=== PATIENT | male | born 1970 | race Caucasian/White ===

== ENCOUNTER 2017-01-06 16:27 | Emergency (ER) | payer OTHER ==
[~2017-01-06] VITALS: Ht 182.9 cm; Wt 106.9 kg
[2017-01-06 16:33] VITALS: TEMP 36.7; Ht 182.9 cm; Wt 106.9 kg
[2017-01-06] MEDS ORDERED: IBUP-103 PO (16:52)
--- NOTE | 2017-01-06 17:45 | DIAGNOSTIC IMAGING REPORT ---
LUMBAR SPINE 5 VIEWS HISTORY: EVAL RIGHT BACK PAIN COMPARISON: None. FINDINGS: There is no fracture. No subluxation. Cholecystectomy. Posterior fusion defect at L5. Mild disc space at L5-S1. Mild to moderate facet degenerative changes at L4-5 and L5-S1. There are suggestion of bilateral L5 spondylolysis. IMPRESSION: 1. Mild degenerative disease at L5-S1. 2. Gwdr-ij-[id number] facet degenerative changes within the lower lumbar spine. 3. Possible bilateral L5 spondylolysis. Electronically signed by: Dominic Orozco M.D. 01/06/2017 5:43 PM Dictated Date/Time: 01/06/2017 5:42 PM
[2017-01-06] MEDS ORDERED: CYCL10TA6 PO (18:07)
[2017-01-06] MEDS ORDERED: IBUP-1451 PO (18:07)
[2017-01-06] MEDS ORDERED: HYDR-5688 PO (18:07)
--- NOTE | 2017-01-06 18:09 | EMERGENCY ROOM VISIT NOTE ---
ED Visit Note First contact with patient: 16:49 CHIEF COMPLAINT: Right low back pain 3-1/2 weeks HISTORY OF PRESENT ILLNESS: Patient is a 46-year-old white male who presents to the emergency department for worsening right low back pain. He initially injured himself on December 13. He was playing dodgeball for a work-related team building activity, and states he threw a dodgeball and felt a pop in his right low back. He was seen at [facility], and placed on a course of prednisone. He states that his symptoms did improve, and he essentially did return back to normal activity. Last night however, patient states that he was laying on his abdomen, and rolled onto his back, when he again felt a pop in the same area as the initial injury. He complains of pain that radiates from the right low back around the lateral aspect of the right hip into the right groin and down the medial thigh stopping at the knee. He has taken Advil intermittently, and has applied heat. He notes muscle spasms in his quad today. He denies any numbness, tingling or weakness into the right leg. No bowel or bladder incontinence or saddle anesthesias. He has no pain radiating into his penis or his testicle. He denies any prior history of back issues. He has been appointment with [facility] occupational health on Monday the , but concerned he could not get through the weekend due to his increased symptoms and thus presents to the emergency department. He presently rates his pain a 8/10. REVIEW OF SYSTEMS: Review of systems as per HPI. All other systems reviewed were negative. 10 systems reviewed. PMH: Electronic medical records are reviewed and summarized as above/below. See Problem List. SOCIAL HISTORY: Patient lives at home with his and children. Employed. He does not smoke.. PHYSICAL EXAM: Vital Signs: Reviewed Nurse's notes. CONSTITUTIONAL: Patient is a pleasant, well-appearing 46-year-old white male who is awake and alert and in mild distress. There is some discomfort with position changes. CARDIOVASCULAR: Regular rate and rhythm. Peripheral pulses easily palpable. RESPIRATORY: Breath sounds equal and clear to auscultation without wheezes, rales, or rhonchi heard. Full and equal chest expansion without accessory muscle use or retractions. ABDOMEN: Bowel sounds are present. Abdomen is soft, nontender and nondistended. INTEGUMENTARY: No lesions or rash, normal skin turgor. LYMPH: No lymphadenopathy. SPINE: Examination of the patient's back does not demonstrate any ecchymosis, abrasions or outward signs of trauma. No erythema, increased warmth or induration. Patient has no midline discomfort to palpation over the lumbar spine. He does have some pain palpable in the right SI region, and over the right posterior hemipelvis. There is no pain over sciatic notch. He has increased pain with range of motion including rotation and flexion. EXTREMITIES: Leg lengths are symmetrical. Negative logroll bilaterally. Normal strength including dorsi-flexion and plantar flexion of the great toes and ankles and flexion and extension of the knees and flexion of the hips. Negative bilateral straight leg raise testing. Lower extremity DTRs are equal and symmetrical bilaterally. Distal pulses are easily palpable. Sensation light touch is intact over the lower extremities bilaterally. EMERGENCY DEPARTMENT COURSE: X-rays of the lumbar spine were obtained. Patient was offered but declined IM Toradol. X-rays noted some mild degenerative changes through the lumbar spine. Treatment options were discussed with the patient. He is reluctant to use an additional course of redness on, and would like to use a nonsteroidal. He will be placed on ibuprofen 800 mg 3 times a day with food. He was also given prescriptions for Flexeril and Iuka to use as needed for breakthrough pain. He was advised to follow-up with occupational health as he has scheduled on Monday. The patient rated his pain a 5/10 at discharge. MEDICAL DECISION MAKING: I do not suspect acute compression syndrome, cauda equina, diskitis, epidural abscess, hematoma or neurovascular compromise. Differential diagnoses entertained included sacroiliitis, lumbar strain, disc herniation, among others. Medication reconciliation: I attest that I have personally reviewed the patient' s current medication list. Blood pressure screening: Patient was found to have a slightly elevated blood pressure due to circumstances. I do not believe that the patient requires hypertension monitoring. LUMBAR SPINE 5 VIEWS HISTORY: EVAL RIGHT BACK PAIN COMPARISON: None. FINDINGS: There is no fracture. No subluxation. Cholecystectomy. Posterior fusion defect at L5. Mild disc space at L5-S1. Mild to moderate facet degenerative changes at L4-5 and L5-S1. There are suggestion of bilateral L5 spondylolysis. IMPRESSION: 1. Mild degenerative disease at L5-S1. 2. Tpch-ok-kphghvem facet degenerative changes within the lower lumbar spine. 3. Possible bilateral L5 spondylolysis. Problem List Medical Problems: (1) Chest pain Status: Resolved (2) Hypertension Nos Status: Chronic Surgical Problems: (1) History of cholecystectomy Status: Resolved (2) History of reconstruction of anterior cruciate ligament tear Status: Resolved Current/Historical Medications Scheduled PRN Cyclobenzaprine Hcl (Flexeril), 10 MG PO TID PRN for Muscle Spasms Hydrocodone/Acetaminophen 5MG/325MG (Iuka 5MG/325MG), 1-2 TABLETS PO Q4 PRN for Pain Ibuprofen Tab (Advil), 400 MG PO Q6H PRN for Pain Ibuprofen Tab (Motrin), 800 MG PO TIDM PRN for Pain Allergies Coded Allergies: Penicillins (Verified Allergy, Intermediate, HIVES,, 11/13/10) Erythromycin (Verified Adverse Reaction, Intermediate, VOMITING, 12/07/10) Anesthetics, Amide (Verified Adverse Reaction, Unknown, SEVERE NAUSEA, ) Vital Signs Date Time Temp Pulse Resp B/P (MAP) Pulse Ox O2 Delivery O2 Flow Rate FiO2 01/06/17 18:17 71 18 152/101 99 Room Air 01/06/17 16:33 36.7 73 20 151/102 100 Room Air Departure Information Impression Primary Impression: Right low back pain Additional Impressions: Right lumbar radiculopathy Work related injury Prescriptions Hydrocodone/Acetaminophen 5MG/325MG (Iuka 5MG/325MG) Tab 1-2 TABLETS PO Q4 Y for Pain, #25 TAB For Initial Treatment Prov: Yuki Olson PA 01/06/17 Cyclobenzaprine Hcl (FLEXERIL) 10 Mg Tab 10 MG PO TID Y for Muscle Spasms, #30 TAB Prov: Yuki Olson PA 01/06/17 Ibuprofen Tab (MOTRIN) 800 Mg Tab 800 MG PO TIDM Y for Pain, #90 TAB 2 Refills Prov: Yuki Olson PA 01/06/17 Referrals RV. Woodard MD (PCP) Patient Instructions [facility] Additional Instructions Hydrocodone/Acetaminophen (Iuka) 5/325 mg: Take 1-2 pills every four hours for breakthrough pain. Avoid alcohol, operating machinery or dangerous equipment, working on ladders or roofs, DRIVING, or situations where being under the influence may be dangerous. It is recommended to use an vuyj-vyp-cutajra stool softener such as Colace, 100mg twice daily while taking this medication to avoid constipation. Cyclobenzaprine (Flexeril) 10 mg: Take 1 pills 3 times daily as needed for muscle spasms.. Avoid alcohol, operating machinery or dangerous equipment, working on ladders or roofs, DRIVING, or situations where being under the influence may be dangerous. Ibuprofen(Motrin, Advil) 800 m tablet 3 times daily with food. Avoid using more than 2400mg in a 24 hour period. Do not use 2400mg per day for more than three consecutive days without physician direction. Prolonged inappropriate use can lead to stomach upset or ulcers. This medication can be taken if you need to drive, work, or perform activities which may be dangerous when taking narcotic pain medication. Rest and avoid heavy lifting until your symptoms resolve and then gradually return to full activity. A good rule of thumb is if it hurts your back to perform a certain activity, then it should be avoided until you are healthy again. A heating pad, warm compresses, or a hot shower may help with tight muscles and can be done several times a day as needed. Continue current medications. Return to the ER immediately for any numbness, tingling, severe pain, loss of control of your bowels or bladder, inability to walk, or as needed. Follow up with Occupational Health as you have scheduled on Monday. Problem Qualifiers
[2017-01-06 18:17] VITALS: BP 152/101; PULSE 71; O2SAT 99
== END 2017-01-06 18:27 ==
LOC: C.EDB 16:29 → C.EDD 18:27
DX: M54.5 Low back pain (principal); M54.16 Radiculopathy, lumbar region; Y99.0 Civilian activity done for income or pay; I10 Essential (primary) hypertension

== ENCOUNTER → 2017-01-13 | Outpatient (CLI) | payer OTHER ==
[~2017-01-13] MED LIST: CYCL10TA6 PO; HYDR-5688 PO; IBUP-103 PO; IBUP-1451 PO
--- NOTE | 2017-01-13 16:00 | DIAGNOSTIC IMAGING REPORT ---
LUMBAR SPINE W/O CONTRAST CLINICAL HISTORY: 46 years-old Male presenting with LUMBAR PAIN W/SCIATICA, low back pain radiating to the right, pain radiating down the right leg to the groin, thigh, and knee. TECHNIQUE: Multisequence, multiplanar MR imaging of the lumbar spine was performed without the use of intravenous contrast. IV contrast: None. COMPARISON: Plain radiographs of the lumbar spine from 01/06/2017. FINDINGS: Localizer images: Unremarkable. Normal lumbar lordosis. T1 hyperintense, T2 hyperintense, fat-containing round lesion at L1 consistent with benign hemangioma. Additional hemangioma noted in the L4 vertebral body. Vertebral bodies maintain normal height, alignment, bone marrow signal intensity. Mild intervertebral disc desiccation without significant height loss at L5-S1. Remainder of intervertebral disc spaces preserved. Mild eccentric disc bulge noted at L3-4 with mild right neural foraminal narrowing resulting. A focal annular fissure is noted at this level (series 3 image 5) This may upon the exiting right L3 nerve root. No significant spinal canal narrowing. Spinal cord ends in good position at L1. Cauda equina normal in morphology. Paraspinal soft tissues within normal limits.. IMPRESSION: Mild degenerative changes at L3-4 and L5-S1. Eccentric disc bulge with an associated annular fissure at L3-4 results in mild right neural foraminal narrowing and abutment of the exiting right L3 nerve root. Electronically signed by: Ramakrishna Baig M.D. 01/13/2017 3:59 PM Dictated Date/Time: 01/13/2017 3:54 PM
== END | disposition home or self-care (01) ==
LOC: C.MRI 15:10
PROVIDERS: ATTEND Preventive Medicine Occupational Medicine
DX: M54.5 Low back pain (principal)

== ENCOUNTER → 2017-02-22 | Outpatient (CLI) | payer OTHER ==
[~2017-02-22] MED LIST changes: -CYCL10TA6 PO
[2017-02-22 10:08] LABS: ALT/SGPT 45 U/L (12-78); AST/SGOT 24 U/L (15-37); BLOOD UREA NITROGEN 15 mg/dl (7-18); BUN/CREATININE RATIO 14.2 (10-20); CALCIUM 9.2 mg/dl (8.5-10.1); CARBON DIOXIDE 32 mmol/L (21-32); CHLORIDE 104 mmol/L (98-107); CHOLESTEROL 171 mg/dl (0-200); CREATININE 1.05 mg/dl (0.60-1.40); GLUCOSE 83 mg/dl (70-99); POTASSIUM 3.9 mmol/L (3.5-5.1); SODIUM 140 mmol/L (136-145); TRIGLYCERIDES 132 mg/dl (0-150); VERY LOW DENSITY LIPOPROT CALC 26 mg/dl
[2017-02-22 10:14] LABS: ALB/GLOB RATIO 1.3 (0.9-2); ALKALINE PHOSPHATASE 53 U/L (45-117); BASO % 0.9 %; BASO ABS # 0.06 K/uL (0-0.2); CHOLESTEROL/HDL RATIO 3.6; COMPLETE YES; EOS % 6.7 %; HDL CHOLESTEROL 47 mg/dl; IG% 0.2 %; LDL CHOLESTEROL CALCULATED 98 mg/dl; LYMPH % 33.3 %; LYMPH ABS # 2.15 K/uL (1.2-3.4); MEAN CELL VOLUME 90.2 fL (80-100); MEAN CORPUSCULAR HEMOGLOBIN 32.1 pg (25-34); MEAN CORPUSCULAR HGB CONC 35.5 g/dl (32-36); MEAN PLATELET VOLUME 10.3 fL (7.4-10.4); MONO % 10.7 %; NEUT % 48.2 %; PLATELET COUNT 222 K/uL (130-400); RED BLOOD COUNT 5.21 M/uL (4.7-6.1); WHITE BLOOD COUNT 6.45 K/uL (4.8-10.8)
== END | disposition home or self-care (01) ==
LOC: C.LAB1850 07:23
PROVIDERS: ATTEND Internal Medicine
DX: Z13.220 Encounter for screening for lipoid disorders (principal); R53.83 Other fatigue